=== PATIENT | male | born 1985 | race African-American/Black ===

== ENCOUNTER 2016-09-10 17:21 | Emergency (ER) | payer OTHER ==
--- NOTE | ~2016-09-10 | CR63 ---
[facility]. [facility] A Service of [facility] & [facility] RADIOLOGY TEXT RESULTS PATIENT: WILBER WEEKS LOCATION: SED : [birth year] UNIT #: [id number] AGE: [address]: Edwin Serrato SEX: M ORDER DR: [id number] [place] [id number] E MR#: [id number] Acc #: [id number] NAME: WILBER WEEKS : 1985 SEX: M STUDY DATE/TIME: 09/10/2016 18:17 UNIT: SED ROOM: STUDY DESCRIPTION: CR Chest 2 View Attending Physician: Edwin Serrato P.A.-C. Ordering Physician: Edwin Serrato P.A.-C. Primary Care Physician: No Primary Care Physician MEDICAL IMAGING REPORT This report is preliminary unless electronic signature is present. EXAM 2 view chest HISTORY Chest congestion, chest pain, blood in urine x2 weeks. FINDINGS PA and lateral examination of the chest upright shows a good expansion of the parenchyma with a normal distribution of the pulmonary vascularity. There is no indication of congestion, effusion, infiltrate, tumor, or nodular density. The pleural reflections and diaphragmatic contours are normal. The cardiac silhouette and mediastinal anatomy is within normal limits. IMPRESSION Normal chest. Dictated by... My Gray M.D. THIS IS AN ELECTRONICALLY VERIFIED REPORT My Gray M.D. at 09/11/2016 2:06 PM JERSON/aldo TD: 09/11/2016 09:47 JOB #: [id number] MEDICAL IMAGING REPORT
--- NOTE | ~2016-09-10 | EKG ---
PATIENT: WILBER WEEKS UNIT #: [id number] Ventricular Rate: 95 BPM Atrial Rate: 95 BPM P-R Interval: 144 ms QRS Duration: 102 ms Q-T Interval: 372 ms QTC Calculation(Bezet): 467 ms P [place]: 44 degrees Calculated R [place]: 22 degrees Calculated T [place]: -10 degrees Diagnosis Line: Normal sinus rhythm Diagnosis Line: T wave abnormality, consider inferior ischemia Diagnosis Line: Prolonged QT Diagnosis Line: Abnormal ECG Diagnosis Line: Diagnosis Line: Confirmed by DEANN OLIVER MD ([id number]) on 09/11/2016 Diagnosis Line: 4:14:33 PM INTERPRETING MD: MELODY MARRERO
[~2016-09-10 17:21] MED LIST: HCTZ; K-DUR10 MEQ; MELOXICAM15 MG PO; NO MEDICATIONS
[2016-09-10 18:00] LABS: BASOPHIL# 0.1 X10e3 (0-0.3); BASOPHIL% 1.1 % (0-2.5); EOSINOPHIL# 0.3 X10e3 (0-0.7); HEMATOCRIT 47.3 % (38.0-50.0); HEMOGLOBIN 15.6 gm/dL (13.0-16.0); LYMPHOCYTE# 2.6 X10e3 (1.0-3.5); LYMPHOCYTE% 26.2 % (17.0-45.0); MEAN CELL VOLUME 89.3 FL (83-96); MEAN CORPUSCULAR HEMOGLOBIN 29.5 PG (28-34); MEAN CORPUSCULAR HGB CONC 33.1 g/dL (30-36); MEAN PLATELET VOLUME 9.1 FL (6.5-11.5); MONOCYTE# 0.4 X10e3 (0-1.0); MONOCYTE% 4.4 % (3.0-12.0); NEUTROPHIL# 6.4 X10e3 (1.5-7.1); NEUTROPHIL% 65.3 % (40-75); PLATELET COUNT 232 X10e3 (140-420); WHITE BLOOD COUNT 9.8 X10e3 (4.0-10.5)
[2016-09-10 18:07] LABS: URINE SOURCE CLEAN CATCH
[2016-09-10 18:11] LABS: URINE APPEARANCE CLEAR; URINE BILIRUBIN NEG (NEG); URINE BLOOD TRACE-INTACT (NEG); URINE COLOR YELLOW; URINE GLUCOSE NEG (NORM); URINE KETONE NEG (NEG); URINE LEUKOCYTE ESTERASE NEG (NEG); URINE NITRATE NEG (NEG); URINE PH 6.5 (5-8); URINE PROTEIN NEG (NEG); URINE UROBILINOGEN 0.2 MG/DL (NORM)
[2016-09-10 18:13] LABS: POC - CKMB 1.5 ng/mL (0.0-7.9)
[2016-09-10 18:14] LABS: POC - MYOGLOBIN 91.6 ng/mL (0.0-169.0); POC - TROPONIN <0.05 ng/mL (<=0.05)
[2016-09-10 18:16] LABS: DIFF IND NO
[2016-09-10 18:17] LABS: MICRO INDICATED? YES
[2016-09-10 18:20] LABS: CULTURE INDICATED? NO; URINE BACTERIA NEG (NEG); URINE SQUAMOUS EPITHELIAL CELL FEW /[HPF]
[2016-09-10 18:21] LABS: URINE MUCUS PRESENT
[2016-09-10 18:31] LABS: ALKALINE PHOSPHATASE 93 U/L (32-92); ALT (SGPT) 97 U/L (10-40); AST (SGOT) 48 U/L (10-42); BILIRUBIN,TOTAL 0.6 mg/dL (0.2-2.0); CALCIUM SERUM 9.8 mg/dL (8.4-10.2); CARBON DIOXIDE 27 mmol/L (22-31); CHLORIDE 103 mmol/L (100-111); CREATININE SERUM 0.9 mg/dL (0.6-1.4); GLOM FILT RATE Estimated ABOVE60 mL/min (>60); GLUCOSE FASTING 118 mg/dL (70-110); POTASSIUM 3.5 mmol/L (3.5-5.1); PROTEIN TOTAL SERUM 8.4 g/dL (6.0-8.3); SODIUM 140 mmol/L (135-145)
[2016-09-10 18:32] LABS: BILIRUBIN, DIRECT <0.1 mg/dL (0.0-0.2); BILIRUBIN,INDIRECT 0.5 mg/dL (0.0-0.9); BLOOD UREA NITROGEN 11 mg/dL (9-23); BUN/CREATININE RATIO 12.22
[2016-09-10 18:44] LABS: ALBUMIN SERUM 4.8 g/dL (3.5-5.0)
[2016-09-12 11:48] LABS: CHLAMYDIA TRACH Not Detected (Not Detected); N GONOR Not Detected (Not Detected)
== END 2016-09-10 19:01 | disposition home or self-care (01) ==
LOC: SED 17:21
PROVIDERS: Physician Assistant
DX: J06.9 Acute upper respiratory infection, unspecified (principal); R79.89 Other specified abnormal findings of blood chemistry; I10 Essential (primary) hypertension
CPT/HCPCS: 36415; 71020; 80048; 80076; 81003; 82553; 83874; 84484; 85025; 87491; 87591; 93005; 99284